=== PATIENT | female | born 1945 | race Caucasian/White ===

== ENCOUNTER 2017-01-02 09:26 | Emergency (ER) | payer MEDICARE ==
[2017-01-02 09:33] VITALS: PULSE 83; RESP 18; TEMP 98.2
--- NOTE | 2017-01-02 10:06 | ED ---
Recheck HPI - General Chief Complaint: Recheck/Abnormal Lab/Rx Stated Complaint: HYPERTENSION Time Seen by Provider: 01/02/17 09:53 Source: patient, RN notes reviewed Mode of arrival: wheelchair Limitations: no limitations - History of Present Illness Initial Comments: 71-year-old female presents emergency department for recheck of her blood pressure. Patient states that she felt shaky this morning so she thought she should check her blood pressure. She states that it was normal though she was worried about is that she retook her blood pressure went up. Patient states that she's had some these episodes in the past in which she felt were related to her blood pressure still he added Norvasc 2.5 mg at nighttime. Patient does have a complete workup for blood pressure which included renal ultrasound, carotids and a CT of her brain. Patient states she has no chest pain or shortness breath no nausea vomiting diarrhea constipation. Patient states that she did eat this morning in which she ate yogurt, blueberries [place]. Patient states she has a follow-up appointment this week with her primary care physician for her blood pressure. Patient states she takes Janumet for diabetes. Patient has NO KNOWN DRUG ALLERGIES. - Related Data Allergies Allergy/AdvReac Type Severity Reaction Status Date / Time No Known Allergies Allergy Verified 01/02/17 09:29 Review of Systems ROS Statement: Those systems with pertinent positive or pertinent negative responses have been documented in the HPI. ROS Other: All systems not noted in ROS Statement are negative. Past Medical History Past Medical History: Diabetes Mellitus, Hyperlipidemia, Hypertension History of Any Multi-Drug Resistant Organisms: None Reported Past Surgical History: Tubal Ligation Additional Past Surgical History / Comment(s): cataract, lung surgery Past Psychological History: No Psychological Hx Reported Smoking Status: Former smoker Past Alcohol Use History: None Reported Past Drug Use History: None Reported General Exam Limitations: no limitations General appearance: alert, in no apparent distress Head exam: Present: atraumatic, normocephalic, normal inspection Eye exam: Present: normal appearance, PERRL, EOMI. Absent: scleral icterus, conjunctival injection, periorbital swelling ENT exam: Present: normal exam, normal oropharynx, mucous membranes moist, TM's normal bilaterally Neck exam: Present: normal inspection, full ROM. Absent: tenderness, meningismus, lymphadenopathy Respiratory exam: Present: normal lung sounds bilaterally. Absent: respiratory distress, wheezes, rales, rhonchi, stridor Cardiovascular Exam: Present: regular rate, normal rhythm, normal heart sounds. Absent: systolic murmur, diastolic murmur, rubs, gallop, clicks GI/Abdominal exam: Present: soft, normal bowel sounds. Absent: distended, tenderness, guarding, rebound, rigid Neurological exam: Present: alert, oriented X3, CN II-XII intact, reflexes normal. Absent: motor sensory deficit Skin exam: Present: warm, dry, intact, normal color. Absent: rash Course Vital Signs 01/02/17 01/02/17 09:29 10:13 Temperature 98.2 F Pulse Rate 83 Respiratory 18 Rate Blood Pressure 187/88 145/65 O2 Sat by Pulse 98 Oximetry Medical Decision Making - Medical Decision Making 71-year-old female presented emergency department for recheck of blood pressure. Patient is very anxious in the room and believes that when she does not feel well it's related to her blood pressure. Patient's blood pressure is 145/65 in the room. Patient was reassured that her blood pressure is within normal limits. Patient states that she feels better at this time. Reassured. Patient be discharged with follow-up with primary care physician this week. Disposition Clinical Impression: Hypertension Disposition: HOME SELF-CARE Condition: Stable Instructions: Hypertension (ED) Additional Instructions: Please return to the Emergency Department if symptoms worsen or any other concerns. Time of Disposition: 10:20
[2017-01-02 10:13] VITALS: BP 145/65
== END 2017-01-02 10:40 | disposition home or self-care (01) ==
LOC: EC 09:26
DX: I10 Essential (primary) hypertension (principal); E11.9 Type 2 diabetes mellitus without complications; Z87.891 Personal history of nicotine dependence; Z79.84 Long term (current) use of oral hypoglycemic drugs
CPT/HCPCS: 99283